=== PATIENT | male | born 1965 | race Caucasian/White ===

== ENCOUNTER 2018-12-24 03:05 | Emergency (ER) | payer BC ==
[~2018-12-24] VITALS: Ht 177.8 cm; Wt 99.3 kg
[~2018-12-24 03:05] MED LIST: ASPIR 8181 MG PO; HUMULIN 70/303 ML SC; LISINOPRIL/HCTZ1 TA2 PO; LOVASTATIN20 MG PO; PRI20 PO; ULTRAM50 MG PO
[2018-12-24 03:26] VITALS: BP 176/109; Ht 177.8 cm; Wt 99.3 kg
== END 2018-12-24 05:40 | disposition home or self-care (01) ==
LOC: ED 03:05
DX: S61.412A Laceration without foreign body of left hand, initial encounter (principal); I10 Essential (primary) hypertension; E11.9 Type 2 diabetes mellitus without complications; W01.198A Fall on same level from slipping, tripping and stumbling with subsequent striking against other object, initial encounter; Y93.89 Activity, other specified; Y92.59 Other trade areas as the place of occurrence of the external cause; Y99.8 Other external cause status
CPT/HCPCS: J2001; Q0092

== ENCOUNTER 2019-03-25 06:54 | Emergency (ER) | payer BC ==
[~2019-03-25] VITALS: Ht 177.8 cm; Wt 92.7 kg
[2019-03-25 06:57] VITALS: Ht 177.8 cm; Wt 92.7 kg
[2019-03-25 07:40] LABS: BASOPHIL % 0.3 % (0-2); PLATELET COUNT 200 x10^3mcL (130-400)
[2019-03-25 08:13] LABS: CALCIUM 9.6 mg/dL (8.5-10.1); CARBON DIOXIDE 30.8 mmol/L (21-32); CREATININE SERUM 1.5 mg/dL (0.7-1.3); POTASSIUM SERUM 3.9 mmol/L (3.5-5.1)
[2019-03-25 08:18] LABS: ALBUMIN 3.7 g/dL (3.4-5.0); BILIRUBIN TOTAL 0.6 mg/dL (0.20-1.00); TOTAL PROTEIN, SERUM 7.2 g/dL (6.4-8.2)
[2019-03-25 10:19] VITALS: BP 133/71
== END 2019-03-25 10:19 | disposition home or self-care (01) ==
LOC: ED 06:54
PROVIDERS: Specialist
DX: M48.061 Spinal stenosis, lumbar region without neurogenic claudication (principal); M25.551 Pain in right hip; M25.552 Pain in left hip; I10 Essential (primary) hypertension; E11.9 Type 2 diabetes mellitus without complications; E78.00 Pure hypercholesterolemia, unspecified
CPT/HCPCS: J1885; J3010; J7030